=== PATIENT | female | born 1985 | race Caucasian/White ===

== ENCOUNTER → 2017-06-07 | Outpatient (CLI) | payer MEDICAID ==
[~2017-06-07] MED LIST: PRENATAL PLUS1 TA1 PO
[2017-06-07 14:14] LABS: HEMOGLOBIN 13.8 g/dL (12.2-16.2); LYMPH # 1.7 K/mm3 (0.7-4.5); LYMPH % 13.7 % (10-50.0)
[2017-06-07 15:28] LABS: BUN 6 mg/dL (7-18)
[2017-06-07 15:29] LABS: GFR (ESTIMATED) 73 ML/MIN (59-)
== END ==
LOC: LAB 14:00
PROVIDERS: Surgery
DX: K80.12 Calculus of gallbladder with acute and chronic cholecystitis without obstruction (principal)